=== PATIENT | male | born 1995 | race Caucasian/White ===

== ENCOUNTER 2017-09-15 13:21 | Emergency (ER) | payer SELFPAY ==
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
[2017-09-15] MEDS ORDERED: IBUPROFEN 600 MG TABLET PO STA (14:16)
[2017-09-15] MEDS ORDERED: traMADol 50 MG TABLET PO STA (14:17)
[2017-09-15] MEDS ORDERED: MUPIROCIN 2% OINT 1 GM TOP STA (14:18)
--- NOTE | 2017-09-15 15:21 | CT Preliminary Report ---
Exam: CT HEAD W/O IMPRESSION: Nasal bone fractures noted, otherwise unremarkable head CT. [facility] SITE ID: [id number]
--- NOTE | 2017-09-15 15:21 | CT Report ---
EXAM: CT HEAD EXAM DATE: 09/15/2017 03:08 PM. CLINICAL HISTORY: Injury last night. Facial abrasions. COMPARISON: None. TECHNIQUE: Multiaxial CT images were obtained from the foramen magnum to the vertex. Reformats: Coron al. IV contrast: None. In accordance with CT protocol optimization, one or more of the following dose reduction techniques w ere utilized for this exam: automated exposure control, adjustment of mA and/or KV based on patient s ize, or use of iterative reconstructive technique. FINDINGS: Parenchyma: No intraparenchymal hemorrhage. No evidence of mass, midline shift, or CT findings of inf arction. Hunter-white differentiation is distinct. Extraaxial Spaces: Normal for age. No subdural or epidural collections identified. Ventricles: Normal in size and position. Sinuses and Orbits: Imaged paranasal sinuses, orbits, and mastoids show no significant abnormality. Bones: Nasal bone fractures noted. No sign of skull fracture. Other: Mild right forehead scalp hematoma noted. IMPRESSION: Nasal bone fractures noted, otherwise unremarkable head CT. [facility] Referring Provider Line: [phone] SITE ID: [id number]
--- NOTE | 2017-09-15 15:23 | CT Report ---
EXAM: CT CERVICAL SPINE WITHOUT CONTRAST DATE: 09/15/2017 03:08 PM. HISTORY: Injury last night. Facial abrasions. Neck and upper back pain. COMPARISONS: None. TECHNIQUE: Thin-section axial images were acquired of the cervical spine without contrast. Post-proce ssing: Coronal and sagittal reformats. Other: None. In accordance with CT protocol optimization, one or more of the following dose reduction techniques w ere utilized for this exam: automated exposure control, adjustment of mA and/or KV based on patient s ize, or use of iterative reconstructive technique. FINDINGS: Alignment: No scoliosis or spondylolisthesis. Bones: No fracture or bone lesion. Interspace Levels/Facets: C1-C2: Unremarkable. C2-C3: Unremarkable. C3-C4: Unremarkable. C4-C5: Unremarkable. C5-C6: Unremarkable. C6-C7: Unremarkable. C7-T1: Unremarkable. Musculature: Normal. No fatty atrophy. Other: The paravertebral and prevertebral soft tissues are unremarkable. The lung apices are clear. IMPRESSION: Normal cervical spine CT. [facility] Referring Provider Line: [phone] SITE ID: [id number]
--- NOTE | 2017-09-15 15:26 | CT Report ---
EXAM: CT THORACIC SPINE WITHOUT CONTRAST EXAM DATE: 09/15/2017 03:08 PM. CLINICAL HISTORY: Injury last night. Facial abrasions. Neck and upper back pain. COMPARISONS: None. TECHNIQUE: Thin-section axial images were acquired of the thoracic spine from C7 to L1 without contra st. Post-processing: Coronal and sagittal reformats. Other: None. IV Contrast: None. In accordance with CT protocol optimization, one or more of the following dose reduction techniques w ere utilized for this exam: automated exposure control, adjustment of mA and/or KV based on patient s ize, or use of iterative reconstructive technique. FINDINGS: Alignment: No scoliosis or spondylolisthesis. Bones: No fracture or bone lesion. Disk Levels/Facets: C7-T1: Unremarkable. T1-T2: Unremarkable. T2-T3: Unremarkable. T3-T4: Unremarkable. T4-T5: Unremarkable. T5-T6: Unremarkable. T6-T7: Unremarkable. T7-T8: Unremarkable. T8-T9: Unremarkable. T9-T10: Unremarkable. T10-T11: Unremarkable. T11-T12: Unremarkable. T12-L1: Unremarkable. Musculature: Normal. No fatty atrophy. Other: The visualized lungs, mediastinum, and abdominal cavity are unremarkable. IMPRESSION: Normal thoracic spine CT. [facility] Referring Provider Line: [phone] SITE ID: [id number]
[2017-09-15 16:27] VITALS: BP 117/64
== END 2017-09-15 16:47 | disposition home or self-care (01) ==
LOC: ED 13:21
DX: S09.93XA Unspecified injury of face, initial encounter (principal); S02.2XXA Fracture of nasal bones, initial encounter for closed fracture; S00.81XA Abrasion of other part of head, initial encounter; S29.019A Strain of muscle and tendon of unspecified wall of thorax, initial encounter; S01.81XA Laceration without foreign body of other part of head, initial encounter; X58.XXXA Exposure to other specified factors, initial encounter
CPT/HCPCS: 70450; 72125; 72128; 99283; A9270

== ENCOUNTER 2017-09-18 08:44 | Emergency (ER) | payer SELFPAY ==
[2017-09-18 08:56] VITALS: BP 128/69
[2017-09-18] MEDS ORDERED: LIDOCAINE PATCH 5% TOP PRN (09:24)
[2017-09-18] MEDS ORDERED: KETOROLAC 60 MG/2 ML VIAL IM STA (09:24)
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
--- NOTE | 2017-09-18 09:57 | XRAY Preliminary Report ---
Exam: XR CHEST 2 VIEW X-RAY IMPRESSION: Normal 2-view chest radiography. [facility] SITE ID: [id number]
--- NOTE | 2017-09-18 09:57 | XRAY Report ---
EXAM: LEFT RIB RADIOGRAPHY EXAM DATE: 09/18/2017 09:45 AM. CLINICAL HISTORY: Trauma. Pain COMPARISON: None. TECHNIQUE: 3 views. FINDINGS: Bones: Normal. No fracture or bone lesion. Lungs: No focal opacities evident. No pneumothorax or pleural effusions. Mediastinum: Heart and cardiomediastinal contours are unremarkable. Other: None. IMPRESSION: Normal rib radiography. [facility] Referring Provider Line: [phone] SITE ID: [id number]
--- NOTE | 2017-09-18 09:57 | XRAY Preliminary Report ---
Exam: XR RIBS 2 VIEW LT IMPRESSION: Normal rib radiography. [facility] SITE ID: [id number]
--- NOTE | 2017-09-18 09:58 | XRAY Report ---
EXAM: CHEST RADIOGRAPHY EXAM DATE: 09/18/2017 09:45 AM. CLINICAL HISTORY: Trauma. Pain COMPARISON: None. TECHNIQUE: 2 views. FINDINGS: Lungs/Pleura: No focal opacities evident. No pleural effusion. No pneumothorax. Normal volumes. Mediastinum: Heart and mediastinal contours are unremarkable. Other: None. IMPRESSION: Normal 2-view chest radiography. [facility] Referring Provider Line: [phone] SITE ID: [id number]
== END 2017-09-18 11:03 | disposition home or self-care (01) ==
LOC: ED 08:44
DX: S20.212A Contusion of left front wall of thorax, initial encounter (principal); S00.81XA Abrasion of other part of head, initial encounter; S02.2XXA Fracture of nasal bones, initial encounter for closed fracture; S09.93XA Unspecified injury of face, initial encounter; X58.XXXA Exposure to other specified factors, initial encounter
CPT/HCPCS: 71046; 71100; 93005; 96372; 99283; A9270

== ENCOUNTER 2018-03-22 21:13 | Outpatient (CLI) | payer SELFPAY | END 2018-03-22 21:14 | disposition critical access hospital (66) | LOC: EMS 21:13 | PROVIDERS: ATTEND Surgery | DX: R09.2 Respiratory arrest (principal) | CPT/HCPCS: A0425; A0427 ==

== ENCOUNTER 2018-03-22 21:47 | Emergency (ER) | payer SELFPAY ==
[2018-03-22] MEDS ORDERED: ONDANSETRON 4 MG/2 ML VIAL IVP STA (21:51)
[2018-03-22] MEDS ORDERED: SODIUM CHLORIDE 0.9% 1,000 ML IV ONE (21:52)
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
[2018-03-22 22:16] LABS: BUN - BLOOD UREA NITROGEN 23 mg/dL (6-20); CALCIUM 8.9 mg/dL (8.5-10.3); CARBON DIOXIDE - CO2 26 mmol/L (21-32); CHLORIDE 104 mmol/L (101-111); CREATININE 0.9 mg/dL (0.6-1.2); GFR - MDRD 106 (>89); GLUCOSE 121 mg/dL (70-100); SODIUM 139 mmol/L (135-145)
[2018-03-22 23:48] LABS: MUDS CUTOFF CONCENTRATIONS CUTOFF CONC BELOW:
[2018-03-23 00:05] LABS: AMPHETAMINE SCREEN,URINE NEGATIVE (NEGATIVE); BENZODIAZEPINES SCREEN, URINE NEGATIVE (NEGATIVE); COCAINE SCREEN URINE NEGATIVE (NEGATIVE); METHADONE SCREEN, URINE NEGATIVE (NEGATIVE); METHAMPHETAMINES SCREEN, URINE NEGATIVE (NEGATIVE); OPIATE SCREEN, URINE NEGATIVE (NEGATIVE); OXYCODONE SCREEN, URINE NEGATIVE (NEGATIVE); PROPOXYPHENE SCREEN, URINE NEGATIVE (NEGATIVE); TRICYCLIC ANTIDEPRESSANT,URINE NEGATIVE (NEGATIVE)
[2018-03-23 00:21] VITALS: BP 130/76
== END 2018-03-23 00:52 | disposition home or self-care (01) ==
LOC: EDUNIT# → ED 21:47
DX: T40.601A Poisoning by unspecified narcotics, accidental (unintentional), initial encounter (principal); R41.82 Altered mental status, unspecified; Y92.814 Boat as the place of occurrence of the external cause
CPT/HCPCS: 36415; 80048; 80306; 80320; 96361; 96374; 99283; 99284

== ENCOUNTER 2023-01-29 21:54 | Outpatient (CLI) | payer SELFPAY | END 2023-01-29 23:59 | disposition left against medical advice (07) | LOC: EMS 21:54 | DX: Z04.1 Encounter for examination and observation following transport accident (principal) ==

== ENCOUNTER 2023-03-05 06:14 | Outpatient (CLI) | payer SELFPAY | END 2023-03-05 06:15 | disposition critical access hospital (66) | LOC: EMS 06:14 | DX: M54.2 Cervicalgia (principal); M25.512 Pain in left shoulder; R51.9 Headache, unspecified; V48.5XXA Car driver injured in noncollision transport accident in traffic accident, initial encounter; Y92.414 Local residential or business street as the place of occurrence of the external cause | CPT/HCPCS: A0425; A0429 ==

== ENCOUNTER 2023-03-05 06:49 | Emergency (ER) | payer MEDICAID, OTHER ==
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
[2023-03-05] MEDS ORDERED: PROPARACAINE 0.5% OPHTH DROPS 15 ML EACHEYE STA (08:11)
[2023-03-05 08:21] VITALS: O2SAT 100
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
[2023-03-05] MEDS ORDERED: IBUPROFEN 600 MG TABLET PO STA (10:11)
[2023-03-05] MEDS ORDERED: ACETAMINOPHEN 325 MG TABLET PO STA (10:12)
[2023-03-05 10:29] VITALS: BP 103/53
== END 2023-03-05 10:33 | disposition home or self-care (01) ==
LOC: EDUNIT# → ED 06:49
DX: M54.50 Low back pain, unspecified (principal); S00.83XA Contusion of other part of head, initial encounter; S46.912A Strain of unspecified muscle, fascia and tendon at shoulder and upper arm level, left arm, initial encounter; S16.1XXA Strain of muscle, fascia and tendon at neck level, initial encounter; T15.12XA Foreign body in conjunctival sac, left eye, initial encounter; T15.11XA Foreign body in conjunctival sac, right eye, initial encounter; W44.F9XA Other object of natural or organic material, entering into or through a natural orifice, initial encounter; V48.5XXA Car driver injured in noncollision transport accident in traffic accident, initial encounter; Y93.89 Activity, other specified; Y92.410 Unspecified street and highway as the place of occurrence of the external cause
CPT/HCPCS: 70450; 72125; 72128; 72131; 73030; 99283; 99284; A9270; J3490